=== PATIENT | female | born 1955 | race Caucasian/White ===

== ENCOUNTER 2023-02-03 03:51 | Day surgery (SDC) | payer OTHER ==
[2023-01-30 09:35] VITALS: BMI 39.4
[~2023-02-03 03:51] MED LIST: FERRIC SUBSULFATE 500 ML BOTTLE TP ONE; IODINE/POTASSIUM IODIDE 5%/10% 14 ML BOTTLE NR ONE
[2023-02-03] MEDS ORDERED: ACETAMINOPHEN 325 MG TABLET (FP) PO PRN (08:01)
[2023-02-03] MEDS ORDERED: IBUPROFEN 400 MG TABLET (FP) PO PRN (08:01)
[2023-02-03] MEDS ORDERED: ONDANSETRON 4 MG/2 ML VIAL IVPUSH PRN (08:41)
[2023-02-03] MEDS ORDERED: oxyCODONE HCL 5 MG TABLET PO PRN (08:41)
[2023-02-03] MEDS ORDERED: LACTATED RINGERS SOLUTION 1,000 ML IV SCH (08:45)
[2023-02-03] MEDS ORDERED: LIDOCAINE HCL/PF 2% SDV 5ML VIAL ONE (10:18)
[2023-02-03] MEDS ORDERED: PROPOFOL 20 ML ONE (10:19)
[2023-02-03] MEDS ORDERED: MIDAZOLAM HCL 2 MG/2 ML SINGLE DOSE VIAL ONE (10:19)
[2023-02-03] MEDS ORDERED: DEXAMETHASONE SOD PHOSPHATE 4 MG/1 ML VIAL ONE (11:00)
[2023-02-03] MEDS ORDERED: ONDANSETRON 4 MG/2 ML VIAL ONE (11:00)
[2023-02-03] MEDS ORDERED: ACETAMINOPHEN INJECTION 100 ML IVPB ONE (11:57)
[2023-02-03] MEDS ORDERED: ACETAMINOPHEN 1000 MG/100 ML BAG IVPB ONE (12:02)
[2023-02-03 13:14] VITALS: BP 152/75; PULSE 80; RESP 20
[2023-02-03 15:40] VITALS: TEMP 97.5
== END 2023-02-03 14:45 | disposition home or self-care (01) ==
LOC: JASU-SURG 03:51
PROVIDERS: ATTEND Obstetrics & Gynecology
PROC: 0UB98ZZ Excision of Uterus, Via Natural or Artificial Opening Endoscopic (ICD-10-PCS; principal; 2023-02-03 09:30)
DX: N95.0 Postmenopausal bleeding (principal); N84.0 Polyp of corpus uteri; N88.2 Stricture and stenosis of cervix uteri
CPT/HCPCS: 88305-TC; 94760

== ENCOUNTER 2023-05-22 15:25 | Inpatient (IN) | payer OTHER ==
[2023-05-22] MEDS ORDERED: ALPRAZolam 0.25 MG TABLET PO ONE ×2 (17:32→20:20)
[2023-05-22] MEDS ORDERED: ACETAMINOPHEN 1000 MG/100 ML BAG IVPB ONE (17:32)
[2023-05-22] MEDS ORDERED: ALPRAZolam 0.25 MG TABLET ONE ×2 (17:35→20:33)
[2023-05-22] MEDS ORDERED: ACETAMINOPHEN INJECTION 100 ML IVPB ONE (17:35)
[2023-05-22 18:15] LABS: BASO % 0.8 % (0-2.0); EOS % 0.5 % (0-4.5); HEMATOCRIT 41.9 % (32.4-45.2); HEMOGLOBIN 14.1 GM/dL (10.7-15.3); LYMPH % 19.8 % (8-40); MCH 29.6 pg (25.7-33.7); MCHC 33.6 g/dl (32.0-36.0); MEAN CELL VOLUME 87.9 fl (80-96); MEAN PLT VOLUME 8.8 fl (7.5-11.1); NEUT % 70.9 % (42.8-82.8); PLATELET COUNT 301 10^3/uL (134-434); RBC 4.76 M/mm3 (3.60-5.2); RDW 12.7 % (11.6-15.6); WHITE BLOOD COUNT 13.5 K/mm3 (4.0-10.0)
[2023-05-22 18:35] LABS: POTASSIUM 4.6 mmol/L (3.5-5.1)
[2023-05-22 18:37] LABS: CALCIUM 8.9 mg/dL (8.5-10.1)
[2023-05-22 18:41] LABS: CREATININE 0.9 mg/dL (0.55-1.3)
[2023-05-22 18:42] LABS: TOT PROT 7.3 g/dl (6.4-8.2)
[2023-05-22 18:43] LABS: BILIRUBIN,TOTAL 0.6 mg/dL (0.2-1); LACTIC ACID 2.7 mmol/L (0.4-2.0)
[2023-05-22] MEDS ORDERED: VANCOMYCIN 1,000 MG in DEXTROSE 5%-WATER - 250 ML IVPB ONE (19:19)
[2023-05-22] MEDS ORDERED: PIPERACILLIN/TAZOB 4.5 GM 4.5 GM in DEXTROSE 5%-WATER 100 ML IVPB ONE (19:20)
[2023-05-22] MEDS ORDERED: LACTATED RINGERS SOLUTION 1000 ML INFUS.BAG IV ONE (19:24)
[2023-05-22] MEDS ORDERED: VANCOMYCIN 1 GRAM (PRE-DOCKED) 1,000 MG/250 ML BAG IVPB ONE (21:20)
[2023-05-22] MEDS ORDERED: CLINDAMYCIN 600MG PREMIX IVPB 600 MG/50 ML BAG IVPB ONE ×2 (21:31→22:38)
[2023-05-22] MEDS ORDERED: morphine CARPU-JECT 2 MG/1 ML DISP.SYRIN IVPUSH ONE (22:37)
[2023-05-23] MEDS ORDERED: SODIUM CHLORIDE 1,000 ML IV SCH (00:45)
[2023-05-23 01:02] LABS: LACTIC ACID 2.4 mmol/L (0.4-2.0)
[2023-05-23 03:30] VITALS: BMI 39.1
[2023-05-23] MEDS ORDERED: PIPERACILLIN/TAZOB 4.5 GM 4.5 GM in DEXTROSE 5%-WATER 100 ML IVPB SCH (04:00)
[2023-05-23] MEDS ORDERED: LIDOCAINE HCL/PF 2% SDV 5ML VIAL ONE (07:03)
[2023-05-23] MEDS ORDERED: MIDAZOLAM HCL 2 MG/2 ML SINGLE DOSE VIAL ONE (07:03)
[2023-05-23] MEDS ORDERED: PROPOFOL 20 ML ONE ×2 (07:03→07:42)
[2023-05-23] MEDS ORDERED: PROMETHAZINE HCL 25 MG/1 ML VIAL IVPB PRN (08:35)
[2023-05-23] MEDS ORDERED: LACTATED RINGERS SOLUTION 1,000 ML IV SCH (08:45)
[2023-05-23] MEDS ORDERED: VANCOMYCIN/WATER 1250 MG 1,250 MG/250 ML BAG IVPB SCH ×2 (09:00)
[2023-05-23] MEDS: SODIUM CHLORIDE 1,000 ML IV SCH (09:25)
[2023-05-23] MEDS ORDERED: ACETAMINOPHEN 1000 MG/100 ML BAG IVPB ONE (10:00)
[2023-05-23] MEDS ORDERED: ALPRAZolam 0.25 MG TABLET PO PRN (10:42)
[2023-05-23 13:17] LABS: HEMATOCRIT 38.2 % (32.4-45.2); HEMOGLOBIN 12.6 GM/dL (10.7-15.3); MCH 29.6 pg (25.7-33.7); MCHC 33.1 g/dl (32.0-36.0); MEAN CELL VOLUME 89.7 fl (80-96); MEAN PLT VOLUME 9.2 fl (7.5-11.1); PLATELET COUNT 263 10^3/uL (134-434); RBC 4.26 M/mm3 (3.60-5.2); RDW 12.5 % (11.6-15.6)
[2023-05-23] MEDS: PIPERACILLIN/TAZOB 4.5 GM 4.5 GM in DEXTROSE 5%-WATER 100 ML IVPB SCH ×2 (13:36→17:39)
[2023-05-23 13:45] LABS: POTASSIUM 4.9 mmol/L (3.5-5.1)
[2023-05-23 13:48] LABS: CALCIUM 8.5 mg/dL (8.5-10.1)
[2023-05-23 13:49] LABS: ALBUMIN 2.6 g/dl (3.4-5.0); BLOOD UREA NITROGEN 10.4 mg/dL (7-18)
[2023-05-23 13:52] LABS: CREATININE 0.7 mg/dL (0.55-1.3)
[2023-05-23 13:53] LABS: TOT PROT 6.6 g/dl (6.4-8.2)
[2023-05-23 13:54] LABS: BILIRUBIN,TOTAL 0.6 mg/dL (0.2-1)
[2023-05-23] MEDS: VANCOMYCIN/WATER 1250 MG 1,250 MG/250 ML BAG IVPB SCH (13:59)
[2023-05-23 14:58] LABS: ANISOCYTOSIS 2+; MACROCYTOSIS 0; OVALOCYTE 2+; TEAR DROP CELLS 2+
[2023-05-23] MEDS ORDERED: ACETAMINOPHEN 500 MG TABLET (FP) PO PRN (18:00)
[2023-05-23] MEDS: oxyCODONE HCL 5 MG TABLET PO PRN (18:55)
[2023-05-23] MEDS: ALPRAZolam 0.25 MG TABLET PO PRN ×2 (18:55→21:44)
[2023-05-23 22:06] LABS: ACTIVATED PTT 29.9 SECONDS (25.2-36.5)
[2023-05-23 22:13] LABS: INR 1.17 (0.83-1.09); PROTHROMBIN TIME (PATIENT) 13.5 SEC (9.7-13.0)
[2023-05-23] MEDS: ZOLPIDEM TARTRATE 5 MG TABLET PO PRN (23:38)
[2023-05-24] MEDS: SODIUM CHLORIDE 1,000 ML IV SCH ×3 (01:42→16:00)
[2023-05-24] MEDS: VANCOMYCIN/WATER 1250 MG 1,250 MG/250 ML BAG IVPB SCH ×2 (01:42→13:13)
[2023-05-24] MEDS: PIPERACILLIN/TAZOB 4.5 GM 4.5 GM in DEXTROSE 5%-WATER 100 ML IVPB SCH ×3 (01:45→17:10)
[2023-05-24] MEDS: ALPRAZolam 0.25 MG TABLET PO PRN ×2 (09:35→21:37)
[2023-05-24 09:55] LABS: BASO % 1.2 % (0-2.0); EOS % 0.4 % (0-4.5); HEMATOCRIT 34.7 % (32.4-45.2); HEMOGLOBIN 11.4 GM/dL (10.7-15.3); LYMPH % 20.7 % (8-40); MCH 29.6 pg (25.7-33.7); MCHC 32.8 g/dl (32.0-36.0); MEAN CELL VOLUME 90.1 fl (80-96); MEAN PLT VOLUME 9.1 fl (7.5-11.1); MONO % 6.3 % (3.8-10.2); NEUT % 71.4 % (42.8-82.8); PLATELET COUNT 264 10^3/uL (134-434); RBC 3.86 M/mm3 (3.60-5.2); RDW 12.1 % (11.6-15.6); WHITE BLOOD COUNT 13.2 K/mm3 (4.0-10.0)
[2023-05-24] MEDS: oxyCODONE HCL 5 MG TABLET PO PRN (15:31)
[2023-05-24] MEDS ORDERED: ALPRAZolam 0.25 MG TABLET PO ONE (15:45)
[2023-05-24] MEDS ORDERED: PIPERACILLIN/TAZOBACTAM 4.5 GM VIAL IVPB ONE (17:05)
[2023-05-24] MEDS ORDERED: INSULIN (NOVOLOG) ASPART 100 UNITS/ML 10ML VIAL ONE (19:17)
[2023-05-24] MEDS: POLYETHYLENE GLYCOL (HEALTHYLAX) 3350 17 GM PACKET PO SCH ×2 (19:20→21:09)
[2023-05-24] MEDS: INSULIN SLIDING SCALE (NOVOLOG) 1 VIAL SQ SCH (19:21)
[2023-05-24 20:00] LABS: EOS % 2.3 % (0-4.5); HEMATOCRIT 35.6 % (32.4-45.2); HEMOGLOBIN 12.2 GM/dL (10.7-15.3); LYMPH % 24.6 % (8-40); MCH 30.2 pg (25.7-33.7); MCHC 34.2 g/dl (32.0-36.0); MEAN CELL VOLUME 88.2 fl (80-96); MEAN PLT VOLUME 8.5 fl (7.5-11.1); MONO % 6.5 % (3.8-10.2); NEUT % 65.6 % (42.8-82.8); PLATELET COUNT 280 10^3/uL (134-434); RBC 4.04 M/mm3 (3.60-5.2); RDW 12.4 % (11.6-15.6); WHITE BLOOD COUNT 11.2 K/mm3 (4.0-10.0)
[2023-05-24 21:05] LABS: POTASSIUM 4.5 mmol/L (3.5-5.1)
[2023-05-24 21:08] LABS: BLOOD UREA NITROGEN 12.1 mg/dL (7-18)
[2023-05-24 21:09] LABS: ALBUMIN 2.5 g/dl (3.4-5.0)
[2023-05-24] MEDS: DOCUSATE SODIUM 100 MG CAPSULE (FP) PO SCH (21:09)
[2023-05-24 21:12] LABS: CREATININE 0.9 mg/dL (0.55-1.3)
[2023-05-24 21:13] LABS: BILIRUBIN,TOTAL 0.4 mg/dL (0.2-1); TOT PROT 6.5 g/dl (6.4-8.2)
[2023-05-24] MEDS: INSULIN (LEVEMIR) 100 UNITS/ML UNITS SQ SCH (21:36)
[2023-05-24] MEDS: ZOLPIDEM TARTRATE 5 MG TABLET PO PRN (21:36)
[2023-05-25] MEDS: VANCOMYCIN/WATER 1250 MG 1,250 MG/250 ML BAG IVPB SCH (00:48)
[2023-05-25] MEDS: PIPERACILLIN/TAZOB 4.5 GM 4.5 GM in DEXTROSE 5%-WATER 100 ML IVPB SCH ×2 (02:25→12:22)
[2023-05-25] MEDS: DOCUSATE SODIUM 100 MG CAPSULE (FP) PO SCH ×3 (05:57→22:18)
[2023-05-25] MEDS: ALPRAZolam 0.25 MG TABLET PO PRN ×3 (05:57→22:17)
[2023-05-25] MEDS: INSULIN (LEVEMIR) 100 UNITS/ML UNITS SQ SCH ×2 (06:39→21:42)
[2023-05-25] MEDS: INSULIN SLIDING SCALE (NOVOLOG) 1 VIAL SQ SCH ×3 (06:40→17:37)
[2023-05-25] MEDS ORDERED: INSULIN (NOVOLOG) ASPART 100 UNITS/ML 10ML VIAL ONE (07:16)
[2023-05-25 09:03] LABS: BASO % 1.1 % (0-2.0); EOS % 3.9 % (0-4.5); HEMATOCRIT 32.4 % (32.4-45.2); HEMOGLOBIN 11.1 GM/dL (10.7-15.3); LYMPH % 32.1 % (8-40); MCHC 34.1 g/dl (32.0-36.0); MEAN CELL VOLUME 87.9 fl (80-96); MEAN PLT VOLUME 8.1 fl (7.5-11.1); MONO % 6.8 % (3.8-10.2); NEUT % 56.1 % (42.8-82.8); PLATELET COUNT 261 10^3/uL (134-434); RBC 3.69 M/mm3 (3.60-5.2); RDW 12.6 % (11.6-15.6); WHITE BLOOD COUNT 8.8 K/mm3 (4.0-10.0)
[2023-05-25 09:32] LABS: POTASSIUM 4.1 mmol/L (3.5-5.1)
[2023-05-25 09:35] LABS: BLOOD UREA NITROGEN 7.9 mg/dL (7-18); CALCIUM 7.7 mg/dL (8.5-10.1)
[2023-05-25 09:36] LABS: ALBUMIN 2.2 g/dl (3.4-5.0)
[2023-05-25 09:38] LABS: CREATININE 0.5 mg/dL (0.55-1.3)
[2023-05-25 09:40] LABS: BILIRUBIN,TOTAL 0.4 mg/dL (0.2-1); TOT PROT 5.2 g/dl (6.4-8.2)
[2023-05-25] MEDS: POLYETHYLENE GLYCOL (HEALTHYLAX) 3350 17 GM PACKET PO SCH ×2 (12:23→22:18)
[2023-05-25] MEDS: SODIUM CHLORIDE 1,000 ML IV SCH (12:23)
[2023-05-25] MEDS: AMOX TR/POT CLAV 875MG/125MG TABLETS (FP) PO SCH (17:47)
[2023-05-25] MEDS: ZOLPIDEM TARTRATE 5 MG TABLET PO PRN (22:25)
[2023-05-26] MEDS: INSULIN (LEVEMIR) 100 UNITS/ML UNITS SQ SCH (06:50)
[2023-05-26] MEDS: DOCUSATE SODIUM 100 MG CAPSULE (FP) PO SCH ×2 (06:51→14:12)
[2023-05-26] MEDS: INSULIN SLIDING SCALE (NOVOLOG) 1 VIAL SQ SCH ×2 (06:53→12:47)
[2023-05-26] MEDS: ALPRAZolam 0.25 MG TABLET PO PRN (07:40)
[2023-05-26] MEDS: POLYETHYLENE GLYCOL (HEALTHYLAX) 3350 17 GM PACKET PO SCH (09:08)
[2023-05-26] MEDS: AMOX TR/POT CLAV 875MG/125MG TABLETS (FP) PO SCH (09:08)
[2023-05-26] MEDS: oxyCODONE HCL 5 MG TABLET PO PRN (10:09)
[2023-05-26] MEDS: SODIUM CHLORIDE 1,000 ML IV SCH (10:10)
[2023-05-26 14:11] VITALS: BP 132/79; PULSE 93; RESP 20; TEMP 97.9
== END 2023-05-26 15:45 | disposition home or self-care (01) | DRG 603 ==
LOC: JER 15:25 → JERBED 22:07 → J8W 05-23 01:07
PROVIDERS: ADMIT Internal Medicine; ATTEND Nurse Practitioner Family
PROC: 0Y9H0ZZ Drainage of Right Lower Leg, Open Approach (ICD-10-PCS; principal; 2023-05-23 06:34)
DX: L02.415 Cutaneous abscess of right lower limb (principal); E87.20 Acidosis, unspecified; I96 Gangrene, not elsewhere classified; B95.7 Other staphylococcus as the cause of diseases classified elsewhere; F43.10 Post-traumatic stress disorder, unspecified; F41.8 Other specified anxiety disorders; E66.9 Obesity, unspecified; Z68.39 Body mass index [BMI] 39.0-39.9, adult; R73.9 Hyperglycemia, unspecified
CPT/HCPCS: 36415; 71045-TC-FY; 72193-TC; 80053; 82962; 83036; 83605; 85025; 85610; 85730; 86850; 86900; 86901; 87040; 87070; 87205; 93005; 93010; 94760; 99285-25; Q9967